=== PATIENT | female | born 1960 | race Hispanic/Latino ===

== ENCOUNTER 2018-02-08 08:17 | Emergency (ER) | payer BC, OTHER ==
[~2018-02-08 08:17] MED LIST: CITA20TA17 PO; RABE20TA27 PO; TRAZ-185 PO; [UNRECOGNIZED DRUG - CODE] IM
[2018-02-08] MEDS ORDERED: KETOROLAC TROMETHAMINE 30MG/ML ONE (08:29)
[2018-02-08] MEDS ORDERED: ONDANSETRON HCL 4 MG/2 ML VIAL ONE (08:29)
[2018-02-08] MEDS ORDERED: SODIUM CHLORIDE 0.9% 1000ML 1,000 ML IV ONE (08:29)
[2018-02-08] MEDS ORDERED: MORPHINE SULFATE 4 MG/1ML SYG ONE (08:30)
[2018-02-08 09:17] LABS: BASOPHILS % (AUTO) 0.6 % (0.0-5.0); EOSINOPHILS % (AUTO) 0.4 % (0.0-8.0); HEMATOCRIT 38.1 % (36-48); LYMPHOCYTES % (AUTO) 14.1 % (21.0-51.0); MEAN CORPUSCULAR HEMOGLOBIN 33.7 pg (27.0-33.0); MEAN CORPUSCULAR HGB CONC 36.3 g/dL (32.0-36.0); MEAN CORPUSCULAR VOLUME 92.8 fL (79-99); MONOCYTES % (AUTO) 5.9 % (3.0-13.0); PLATELET COUNT (AUTO) 278 K/uL (130-400); RED BLOOD CELL COUNT(AUTO) 4.11 MIL/uL (4.00-5.50); RED CELL DISTRIBUTION WIDTH 12.5 % (11.0-15.5); WHITE BLOOD COUNT (AUTO) 8.2 K/uL (4.8-10.8)
[2018-02-08 09:27] LABS: CREATININE 1.3 mg/dL (0.5-1.5); POTASSIUM 4.1 mmol/L (3.5-5.1)
[2018-02-08 09:32] LABS: ALBUMIN 3.9 g/dL (3.5-5.0); BILIRUBIN,TOTAL 0.3 mg/dL (0.2-1.0); TOTAL PROTEIN, SERUM 7.2 g/dL (6.0-8.3)
[2018-02-08 10:34] LABS: APPEARANCE,URINE TURBID (CLEAR); COLOR,URINE YELLOW (YELLOW)
[2018-02-08 10:35] LABS: BILIRUBIN,URINE SMALL (NEGATIVE); GLUCOSE, URINE (UA) NEGATIVE (NEGATIVE); KETONES,URINE >=80 mg/dL (NEGATIVE); LEUKOCYTE ESTERASE ,URINE TRACE (NEGATIVE); NITRATE,URINE NEGATIVE (NEGATIVE); OCCULT BLOOD,URINE SMALL (NEGATIVE); PH,URINE 8.5 (5.0-8.0); PROTEIN,URINE 30 (NEGATIVE)
[2018-02-08 10:38] LABS: BACTERIA,URINE Rare /HPF (None Seen); SQUAMOUS EPITHELIAL CELL,UR Rare /HPF (0-2); WBC,URINE 0-1 /HPF (0-1)
[2018-02-08 10:39] LABS: AMORPHOUS SEDIMENT,UR Many /LPF (None Seen)
== END 2018-02-08 11:23 | disposition home or self-care (01) ==
LOC: EDH 08:17
DX: N20.1 Calculus of ureter (principal); R10.32 Left lower quadrant pain; K21.9 Gastro-esophageal reflux disease without esophagitis; Z87.442 Personal history of urinary calculi; Z90.710 Acquired absence of both cervix and uterus
CPT/HCPCS: 36415; 74176; 80053; 81001; 85025; 96361; 96374; 96375; 99285; J1885; J2270; J2405; J7030

== ENCOUNTER → 2018-02-12 | Outpatient (CLI) | payer BC, OTHER | END | disposition home or self-care (01) | LOC: RAH 13:13 | PROVIDERS: ATTEND Internal Medicine | DX: N13.39 Other hydronephrosis (principal); N23 Unspecified renal colic; Z87.442 Personal history of urinary calculi | CPT/HCPCS: 76770 ==

== ENCOUNTER → 2018-07-06 | Outpatient (CLI) | payer BC, OTHER | END | disposition home or self-care (01) | LOC: RAH 13:31 | PROVIDERS: ATTEND Urology | DX: N20.0 Calculus of kidney (principal); N32.89 Other specified disorders of bladder; I70.90 Unspecified atherosclerosis; M47.895 Other spondylosis, thoracolumbar region | CPT/HCPCS: 74176 ==

== ENCOUNTER 2019-03-17 12:33 | Emergency (ER) | payer BC, OTHER ==
[2019-03-17] MEDS ORDERED: NAPROXEN 500 MG TABLET ONE (13:02)
== END 2019-03-17 14:38 | disposition home or self-care (01) ==
LOC: EDH 12:33
DX: S20.212A Contusion of left front wall of thorax, initial encounter (principal); S60.222A Contusion of left hand, initial encounter; K21.9 Gastro-esophageal reflux disease without esophagitis; Z87.442 Personal history of urinary calculi; Z90.710 Acquired absence of both cervix and uterus; V18.4XXA Pedal cycle driver injured in noncollision transport accident in traffic accident, initial encounter; Y93.55 Activity, bike riding; Y92.89 Other specified places as the place of occurrence of the external cause; Y99.8 Other external cause status
CPT/HCPCS: 71046; 73130

== ENCOUNTER → 2019-06-14 | Outpatient (CLI) | payer BC, OTHER | END | disposition home or self-care (01) | LOC: RAH 10:48 | PROVIDERS: ATTEND Internal Medicine | DX: Z12.31 Encounter for screening mammogram for malignant neoplasm of breast (principal) | CPT/HCPCS: 77067 ==

== ENCOUNTER → 2019-07-29 | Outpatient (CLI) | payer BC, OTHER | END | disposition home or self-care (01) | LOC: RAH 11:29 | PROVIDERS: ATTEND Internal Medicine | DX: N20.0 Calculus of kidney (principal) | CPT/HCPCS: 76770 ==

== ENCOUNTER → 2020-06-19 | Outpatient (CLI) | payer BC, OTHER | END | disposition home or self-care (01) | LOC: RAH 10:56 | PROVIDERS: ATTEND Internal Medicine | DX: Z12.31 Encounter for screening mammogram for malignant neoplasm of breast (principal); N64.89 Other specified disorders of breast | CPT/HCPCS: 77067 ==

== ENCOUNTER 2020-09-24 06:55 | Day surgery (SDC) | payer BC, OTHER ==
[2020-09-22 08:43] LABS: BASOPHILS % (AUTO) 1.4 % (0.0-5.0); EOSINOPHILS % (AUTO) 2.8 % (0.0-8.0); HEMATOCRIT 40.3 % (36-48); LYMPHOCYTES % (AUTO) 41.5 % (21.0-51.0); MEAN CORPUSCULAR HEMOGLOBIN 32.3 pg (27.0-33.0); MEAN CORPUSCULAR HGB CONC 34.2 g/dL (32.0-36.0); MEAN CORPUSCULAR VOLUME 94.4 fL (79-99); MONOCYTES % (AUTO) 9.7 % (3.0-13.0); NEUTROPHILS % (AUTO) 44.4 % (40.0-77.0); PLATELET COUNT (AUTO) 275 K/uL (130-400); RED BLOOD CELL COUNT(AUTO) 4.27 MIL/uL (4.00-5.50); WHITE BLOOD COUNT (AUTO) 4.2 K/uL (4.8-10.8)
[2020-09-22 08:54] LABS: INR 0.94 (0.85-1.15); PROTHROMBIN TIME 10.1 SEC (9.6-11.6)
[2020-09-22 08:55] LABS: PARTIAL THROMBOPLASTIN TIME 26.7 SEC (26.3-35.5)
[2020-09-23 09:23] VITALS: BP 113/59
[2020-09-24] VITALS (9 sets, daily range): BP systolic 90–119; BP diastolic 48–60
[~2020-09-24] VITALS: Ht 154.9 cm; Wt 54.1 kg
[~2020-09-24 06:55] MED LIST changes: +CITA-107 PO; -CITA20TA17 PO; +ESOM40CA PO; +PROP225T3 PO; -RABE20TA27 PO; +SODIUM CHLORIDE 0.9% 500ML 500 ML IV SCH; -[UNRECOGNIZED DRUG - CODE] IM
[2020-09-24] MEDS ORDERED: MIDAZOLAM HCL 1 MG/ML 2ML VIAL ONE ×2 (07:15→14:07)
[2020-09-24] MEDS ORDERED: MEPERIDINE-PF 25 MG/ML SYG ONE ×2 (07:15→14:07)
[2020-09-24] MEDS ORDERED: LIDOCAINE HCL 2% 20ML ONE (07:15)
[2020-09-24] MEDS ORDERED: HEPARIN SODIUM 1000UNIT/ML 10ML VIAL ONE (07:15)
[2020-09-24] MEDS ORDERED: SODIUM CHLORIDE 0.9% 1000ML 1,000 ML IV ONE (08:01)
[2020-09-24] MEDS ORDERED: ISOPROTERENOL HCL 0.2 MG/ML AMP/VIAL/BAG ONE (13:18)
[2020-09-24] MEDS ORDERED: AEC81 PO (15:36)
[2020-09-24] MEDS ORDERED: METO-408 PO (15:36)
[2020-09-24] MEDS ORDERED: ASPIRIN 81MG TAB.CHEW PO SCH (16:45)
[2020-09-24] MEDS ORDERED: METOPROLOL TARTRATE 25 MG TAB PO SCH (16:45)
== END 2020-09-24 19:00 | disposition home or self-care (01) ==
LOC: DAH 06:55
PROVIDERS: ATTEND Internal Medicine Cardiovascular Disease
DX: I47.1 Supraventricular tachycardia (principal); K21.9 Gastro-esophageal reflux disease without esophagitis; F41.9 Anxiety disorder, unspecified; Z79.899 Other long term (current) drug therapy; Z98.890 Other specified postprocedural states; Z79.02 Long term (current) use of antithrombotics/antiplatelets
CPT/HCPCS: 36415; 80048; 85025; 85610; 85730; 93613; 93621; 93623; 93653; A4215; A4216; A4221; A4222; A4223 ×3; A4606; A4649 ×2; A4663; C1730 ×4; C1732; C1894 ×5; J1644 ×2; J2175 ×2; J2250 ×2; J3490 ×2; J7030; 99156; 99157

== ENCOUNTER → 2021-07-19 | Outpatient (CLI) | payer BC, OTHER ==
[~2021-07-19] MED LIST changes: +AEC81 PO; +METO-408 PO; -PROP225T3 PO; -SODIUM CHLORIDE 0.9% 500ML 500 ML IV SCH
== END | disposition home or self-care (01) ==
LOC: RAH 10:06
PROVIDERS: ATTEND Internal Medicine
DX: Z12.31 Encounter for screening mammogram for malignant neoplasm of breast (principal)
CPT/HCPCS: 77067

== ENCOUNTER → 2022-12-08 | Outpatient (CLI) | payer BC, OTHER | END | disposition home or self-care (01) | LOC: RAH 14:24 | PROVIDERS: ATTEND Family Medicine | DX: M25.551 Pain in right hip (principal) | CPT/HCPCS: 73521 ==

== ENCOUNTER → 2023-09-11 | Outpatient (CLI) | payer BC, OTHER | END | disposition home or self-care (01) | LOC: RAH 15:29 | PROVIDERS: ATTEND Family Medicine | DX: Z12.31 Encounter for screening mammogram for malignant neoplasm of breast (principal) | CPT/HCPCS: 77067 ==

== ENCOUNTER 2025-07-13 18:10 | Emergency (ER) | payer BC, OTHER ==
[~2025-07-13] VITALS: Ht 154.9 cm; Wt 53.5 kg
[~2025-07-13 18:10] MED LIST changes: +CYCL-309 PO; +IBUP-1492 PO; +LA/L175C PO; +METR375C2 PO
--- NOTE | 2025-07-13 19:05 | ERN ---
ED Note History of Present Illness Stated Complaint: WRIST PAIN Chief Complaint: Wrist Pain/Injury Time Seen by MD: 18:16 Time Seen by Midlevel: 18:17 Dictation: 64-year-old female presents to the emergency department due to reported having pain to the left wrist due to report of having sustained a fall at home 1 hour prior to arrival. Patient states that she was watering her yd when she tripped and landed on her left arm. At this time, she rates her pain as a 10/10. The patient denies having sustained any other type of injury. Upon initial evaluation, the patient presents with a normal neurovascular examination. Allergies: Coded Allergies: No Known Allergies (Unverified Allergy, Unknown, 10/04/24) No Known Drug Allergies (Unverified Allergy, Unknown, 03/22/17) Emergency Care [employer]: None Home Meds Active Scripts LA/Lactobac Saliv/Bb/S.thermop (Acidophilus 175 mg Capsule) 175 Mg Capsule, 175 MG PO DAILY for 10 Days, #10 CAP Prov:COOPER SCHWARTZ MD 08/12/24 Metronidazole (Flagyl) 375 Mg Capsule, 1 CAP PO BID for 7 Days, #14 CAP 0 Ref ills Prov:COOPER SCHWARTZ MD 08/12/24 Cyclobenzaprine HCl (Cyclobenzaprine HCl) 10 Mg Tablet, 10 MG PO TID PRN for PAIN, #15 TAB 0 Refills Prov:PRISCILLA RILEY MD 05/19/22 Ibuprofen (Ibuprofen) 600 Mg Tablet, 600 MG PO Q6H PRN for PAIN, #40 TAB 0 Refills Prov:PRISCILLA RILEY MD 05/19/22 Aspirin (ASPIRIN 81 MG ECTAB) 81 Mg Ectab, 81 MG PO DAILY, #30 TAB.EC 3 Refills Prov:LICHA MUÑOZ MD 09/24/20 Metoprolol Succinate (Metoprolol Succinate) 25 Mg Tab.er.24h, 25 MG PO DAILY, #30 TAB 3 Refills Prov:LICHA MUÑOZ MD 09/24/20 Reported Medications Trazodone HCl (Trazodone HCl) 50 Mg Tablet, 50 MG PO HS, TAB 09/23/20 Citalopram Hydrobromide (Citalopram HBr) 20 Mg Tablet, 20 MG PO DAILY, TAB 09/23/20 Esomeprazole Magnesium (Nexium) 40 Mg Capsule.dr 40 MG PO DAILY, CAP 09/23/20 Past Medical History Past Medical History: GERD, Hypertension Surgical History: None PSYCH History: no pertinent psych hx Review of System Dictation MS/Extremity: Left wrist pain Initial Vital Sign VS Vital Signs Date Time Temp Pulse Resp B/P (MAP) Pulse Ox O2 Delivery O2 Flow Rate FiO2 07/13/25 18:13 98.2 77 18 118/67 98 07/13/25 19:45 Room Air* 0 21 Physical Exam Dictation General: awake, alert, NAD Head/Face: Normocephalic, atraumatic Eyes: PERRL, EOMI ENT: Oral mucosa moist Neck: Trachea midline, supple Cardiovascular: RRR, no edema Respiratory: Symmetrical, non-labored Abdomen: Soft, non-tender, non-distended, no guarding. Skin: Warm, dry, good turgor, no rash MS/Extremity: Painful range of motion, swelling and tenderness of the left wrist. Normal neurovascular examination. Neuro: COAx4, GCS 15, steady gait, Psych: Normal behavior, mood, and affect normal Results (Laboratory/Radiology) Laboratory/Radiology Laboratory Tests Test 07/13/25 18:45 Urine Color YELLOW (YELLOW) Urine Appearance TURBID (CLEAR) Urine pH 7.0 (5.0-8.0) Urine Specific [place] 1.020 (1.001-1.031) Urine Protein NEGATIVE mg/dL (NEGATIVE) Urine Glucose (UA) NEGATIVE mg/dL (NEGATIVE) Urine Ketones NEGATIVE mg/dL (NEGATIVE) Urine Occult Blood NEGATIVE (NEGATIVE) Urine Nitrate NEGATIVE (NEGATIVE) Urine Bilirubin NEGATIVE mg/dL (NEGATIVE) Urine Urobilinogen 2.0 mg/dL (0.2-1.0) H Urine Leukocyte Esterase NEGATIVE Vikas/uL Urine RBC 0-1 /HPF (0-1) Urine WBC 0-1 /HPF (0-1) Urine Squamous Epithelial Cells RARE /HPF (0-2) Urine Amorphous Crystals (Auto) FEW /LPF (None Seen) Urine Bacteria FEW /HPF (None Seen) ED Course ED Course Orders Procedure Category Date Status Time Wrist Comp 3+Vws Lt RAD 07/13/25 Resulted 18:58 Acetaminophen With PHA 07/13/25 Complete Codeine (Tylenol-Code 19:00 Urinalysis Profile LAB 07/13/25 Complete 19:32 Ondansetron Odt 4mg PHA 07/13/25 Complete Tab (Zofran 4mg Odt) 20:00 Current Medications Medications (Trade) Dose Ordered Sig/Tra Route PRN Reason Start Time Stop Time Status Last Admin Dose Admin Acetaminophen/ Codeine Phosphate (TYLenol-coDEINE TAB) 1 tab ONCE ONCE PO 07/13/25 19:00 07/13/25 19:01 DC 07/13/25 19:36 Ondansetron HCl (zoFRAN 4MG ODT) 4 mg ONCE ONCE SL 07/13/25 20:00 07/13/25 20:01 DC 07/13/25 19:36 Vital Signs Date Time Temp Pulse Resp B/P (MAP) Pulse Ox O2 Delivery O2 Flow Rate FiO2 07/13/25 19:45 98.2 77 18 118/67 98 Room Air* 0 21 07/13/25 18:13 98.2 77 18 118/67 98 Medical Decision Making MDM MDM: Differential diagnosis: Wrist fracture, wrist contusion, wrist sprain. Rationale: Tests considered and ordered secondary to shared decision making include: Previous outside records reviewed: Old ER visits. Risk of complication and/or morbidity or mortality of patient management: None Medications-Per medication reconciliation Need for hospitalization: Patient does not meet criteria for hospitalization. Need for emergency major/minor surgery: No There are no social concerns with this patient. Prescription drug management Prescriptions will include symptomatic care Patient's prior external medical records from other ER visits were reviewed by me as indicated. Prior testing and results from previous visits were reviewed. Prior tests were taken into account with medical decision making and resource utilization, independent historian/historians were used to obtain complete medical history. I independently interpreted the test that were performed, results were reviewed by me and considered findings on radiology if ordered. Medical management and examination interpretation discussions were had by me with other qualified healthcare professionals as indicated for the patient's care. Post application re-evaluation of the splint reveals a normal neurovascular examination DX & DISP Disposition: Discharge Departure Impression: Primary Impression: Left wrist fracture Condition: Stable Referrals: TABITHA VANESSA Jr., MD (PCP) LIZET CROOK MD Time of Disposition: 21:43 ALEXANDER LY Jul 13, 2025 19:05
[2025-07-13 19:40] LABS: ADD UA MICROSCOPIC YES; APPEARANCE,URINE TURBID (CLEAR); GLUCOSE, URINE (UA) NEGATIVE (NEGATIVE); LEUKOCYTE ESTERASE ,URINE NEGATIVE Leu/uL (NEGATIVE); NITRATE,URINE NEGATIVE (NEGATIVE); OCCULT BLOOD,URINE NEGATIVE (NEGATIVE)
[2025-07-13 19:53] LABS: SQUAMOUS EPITHELIAL CELL,UR RARE /HPF (0-2)
--- NOTE | 2025-07-13 21:16 | HMCIMG ---
EXAM: CR right Wrist, 3 View. CLINICAL HISTORY: pain COMPARISON: None provided. FINDINGS: Mildly displaced, comminuted intra-articular fracture of the distal radius. Subtle dorsal angulation of the distal fracture fragment. Mildly displaced fracture of the ulnar styloid process. Joint spaces remain anatomically aligned. IMPRESSION: 1. Mildly displaced, comminuted intra-articular fracture of the distal radius with subtle dorsal angulation of the distal fracture fragment. 2. Mildly displaced fracture of the ulnar styloid process. /[place]
[2025-07-13 21:56] VITALS: BP 137/73; PULSE 78; RESP 16; TEMP 98.4; O2SAT 97
== END 2025-07-13 21:57 | disposition home or self-care (01) ==
LOC: EDH 18:10
DX: S52.572A Other intraarticular fracture of lower end of left radius, initial encounter for closed fracture (principal); S52.612A Displaced fracture of left ulna styloid process, initial encounter for closed fracture; I10 Essential (primary) hypertension; Z79.82 Long term (current) use of aspirin; Z79.899 Other long term (current) drug therapy; W01.0XXA Fall on same level from slipping, tripping and stumbling without subsequent striking against object, initial encounter; Y93.89 Activity, other specified; Y92.89 Other specified places as the place of occurrence of the external cause; Y99.8 Other external cause status
CPT/HCPCS: 29125; 73110; 81001; 99283